=== PATIENT | male | born 1995 | race Caucasian/White ===

== ENCOUNTER 2023-06-07 06:34 | Day surgery (SDC) | payer OTHER, SELFPAY ==
[2023-06-07] VITALS (9 sets, daily range): BP systolic 113–138; BP diastolic 69–79; BMI 32.2
[2023-06-07] MEDS: TYLENOL 1000 MG PO (09:03)
--- NOTE | 2023-06-07 09:12 | W.SUR.PREOP ---
Pre-Operative Surgical Note
-
I have examined this patient prior to the performance of the scheduled procedure.
The patient's condition is unchanged from the time of the current History and
Physical and the patient is able to undergo the scheduled procedure.
--- NOTE | 2023-06-07 11:42 | W.IMMPOSTOP ---
Surgical Immed Post Op Note
-
Primary Surgeon: Anjel Lema MD
Assisting Surgeon: None
Pre-op Diagnosis: Umbilical hernia
Post-op Diagnosis: Same
Procedure Performed: Robotic umbilical hernia repair with mesh (SERG approach)
Anesthesia Type: General
Specimen / Cultures: None
Estimated Blood Loss: 3 cc
Complications: None
Operative Findings: 2 cm umbilical hernia
POST OP PLAN:
Will discharge home
--- NOTE | 2023-06-07 11:44 | OR.RPT ---
Operative Report
Operative Report
Patient Name: Jl Vee
: 1995
Date of Operation: 06/07/2023
Preoperative Diagnosis: Umbilical hernia
Postoperative Diagnosis: Same
Procedure(s):
Robotic umbilical hernia repair with mesh (SERG approach)
Surgeon(s):
Dr. Lema
Assitant(s):
ROYA Celestin
Anesthesia: General
Estimated Blood Loss: 3 cc
Urine Output: None
Drains/Lines/Implants:
11 x 11 cm round Bard soft mesh
Specimens:
None
HPI/Surgical Indications:
This is a 27-year-old male who was seen in my office for a symptomatic umbilical bulge and diagnosed with a reducible umbilical hernia. Risks/Benefits/Alternatives were discussed at length, and the patient agreed to proceed with surgery.
Findings:
2 cm umbilical hernia containing preperitoneal fat
Procedure Description:
The patient was brought to the Operating Room and placed in the supine position with the arms tucked. IV antibiotics were infused and Venodyne stockings placed. Following uneventful induction of general endotracheal anesthesia, an orogastric tube
were placed. The abdomen was prepped and draped in the usual sterile fashion. The abdomen was entered using a Veress technique which required 1 pass, pneumoperitoneum to 15 mmHg was obtained without difficulty. An 8mm trochar was passed through
the abdominal wall roughly 20 cm laterally from the defect in the left upper quadrant, we then confirmed the no inadvertent injury and made while passing the trocar or Veress needle. We then placed two additional 8 mm ports in the left lower
quadrant. Bilateral tap blocks were performed. The robot was docked. We then introduced our prograsper through the inferior/left hand port and a monopolar scissors through the superior port. We then turned our attention to the hernia which had
no intra-abdominal contents. We then began taking a flap down roughly 6 cm away from the defect and roughly 12 cm in length taking care to stay in the pretransversalis plane. The preperitoneal fat was taken down off of the posterior rectus sheath
both superior and inferior to the hernia defect such that we were able to get our 'volcano sign'. We then worked on reducing the defect which contained preperitoneal fat and continued our dissection out laterally for an additional 6 to 7 cm. Once
our flap was created we introduced a ruler and a 0 V-Loc 180. The main hernia defect measured 2 cm. The pocket measured 12 x 12 cm. I had my food and beverage assistant cut a 11 x 11 cm piece of Bard soft mesh with medical nurse, as I closed the umbilical defect.
The mesh was then sutured to the posterior rectus sheath in 4 quadrants with 2-0 vircyls to ensure good apposition. A 2-0 Monocryl was introduced which was used to close our flap. All sutures were removed. The robot was undocked. The ports were
removed under direct visualization and pneumoperitoneum was evacuated. The port sites were closed with 4-0 Monocryl followed by Dermabond. Counts were correct and overall, the patient tolerated the procedure well and was taken to the Recovery Room
postoperatively in stable condition.
I was the attending physician and performed the procedure with assistance from the BAKE ROOM WORKER above. I was present for all portions of the case except for skin closure.
Anjel Lema MD
== END 2023-06-07 13:30 | disposition home or self-care (01) ==
LOC: SDS 06:34
PROVIDERS: ATTENDING PHYSICIAN Surgery
DX: K42.9 Umbilical hernia without obstruction or gangrene (principal)
CPT/HCPCS: 49591; C1781

== ENCOUNTER 2024-12-18 20:06 | Emergency (ER) | payer OTHER, SELFPAY ==
[2024-12-18 20:13] VITALS: BP 149/101
[2024-12-18 20:49] VITALS: BMI 30.8
[2024-12-18 20:53] VITALS: BP 139/81
[2024-12-18] MEDS: GENOPTIC 0.3% EYE DROPS 1 DROP OPHTH (23:49)
--- NOTE | 2024-12-18 23:49 | ED.GENMED ---
History of Present Illness
General
Chief Complaint: Eye Problems
Source: patient and family
Exam Limitations: none
Time Seen by Provider: 12/18/24 22:23
Nursing documentation reviewed up to this point in time: agreed with
History of Present Illness
History of Present Illness:
Note:
CHIEF COMPLAINT(S)
Eye burning sensation upon waking.
HISTORY OF PRESENT ILLNESS
The patient is a 29-year-old male who presented with a burning sensation in both eyes upon waking after going to bed the previous night following work. The patient expressed confusion regarding the onset of symptoms, noting that he had not engaged
in activities typically associated with such symptoms, such as welding or exposure to bright lights. He denied any known exposure to environmental dust or irritants on the day prior to symptom onset. Eye symptoms are persistent and the patient
describes them as stinging. The patient was informed that eye drops, which are expected to sting initially, would be administered to alleviate symptoms.
PLAN
The patient will receive eye drops to manage the burning sensation. The drops will initially cause stinging, which will serve as a reference to assess symptom improvement. The patient will assess the condition before and after the application of the
eye drops to determine their effectiveness.
DIFFERENTIAL DIAGNOSIS
The Differential Diagnosis includes, in no particular order and is not limited to:
1.Corneal Abrasion
2. Dry Eye Syndrome
3. Chemical Conjunctivitis
4. Contact Lens-Associated Eye Irritation
5. Viral Conjunctivitis
6. Bacterial Conjunctivitis
7. Blepharitis
8. Allergic Conjunctivitis
9. Exposure Keratopathy
10. Occupational Exposure to Eye Irritants
Disposition:
SUMMARY OF ENCOUNTER
The patient, a 29-year-old male working in [employer], presented with a burning sensation in both eyes. Upon examination, using fluorescein and tetracaine, minimal bilateral horizontal corneal abrasions were observed. The patient reported relief with the
administration of tetracaine. He is being treated with eye drops (Genoptic [gentamicin ophthalmic]) and received a tetanus shot as his last vaccination was not up to date.
DISPOSITION
The patient will follow up with ophthalmology.
EMERGENCY TREATMENTS ADMINISTERED
Tetracaine was administered for immediate relief of eye discomfort. The patient was also given a tetanus shot.
PLAN
Initiate treatment with Genoptic (gentamicin ophthalmic) eye drops for eye irritation. Follow up with ophthalmology for further evaluation and management of the corneal abrasions.
MEDICATION RECONCILIATION
- Tetracaine administered in the ED for symptomatic relief.
- Genoptic (gentamicin ophthalmic) prescribed for continued use to manage symptoms.
- Tetanus vaccine administered.
MEDICAL DECISION MAKING
- Complexity of Data Reviewed: Differential diagnosis includes exposure keratopathy, corneal abrasion, occupational exposure to eye irritants.
- Data:
- Category 1: Fluorescein dye test was conducted and minimal bilateral horizontal corneal abrasions were independently reviewed.
- Risk: Prescription medication was prescribed (Genoptic [gentamicin ophthalmic]) and tetanus shot was administered. Follow-up with ophthalmology is recommended due to the nature of the corneal abrasions and the occupational risk.
DIAGNOSIS
- Corneal abrasions, bilateral (ICD-10: S05.00XA)
- Tetanus prophylaxis administration due to outdated vaccination status (ICD-10: Z23)
Phy Exam
Physical Exam
Physical Exam:
.
General Physical Exam
General Presentation: well appearing
General age: appears stated age
General Skin: warm and dry
General Habitus: normal
General Mental: alert
Eye Exam
Eye Exam: PERRL and EOMI
Pupil Exam: Bilateral: round and reactive
Cornea Exam: abrasion: Bilateral (Horizontal. No evidence of foreign body)
Type of Exam: simple and fluorescein
Neurological Exam
Neurological Exam: alert and oriented x3
Musculoskeletal Exam
Musculoskeletal Exam: full ROM
Skin Exam
Skin Exam: normal color and warm/dry
Psychiatric Exam
Psychiatric Exam: normal mood/affect
Course
Orders/Labs/Results
Orders:
Orders
12/18/24 22:57
Tetracaine HCl [Tetracaine 0.5% Ophthalmic Solution] 1 drop .ROUTE .STK-MED ONE
12/18/24 23:30
Gentamicin [Genoptic 0.3% Eye Drops] See Dose Instructions OPHTH NOW STA
Tetanus/Diphth/Acelpertussis [Adacel] 0.5 ml IM .ONCE ONE
Vital Signs
Initial and Last Documented VS:
Initial Vital Signs
Temp Pulse Resp BP Pulse Ox
98.5 F 77 18 149/101 98
12/18/24 20:13 12/18/24 20:13 12/18/24 20:13 12/18/24 20:13 12/18/24 20:13
Last Documented Vital Signs
Temp Pulse Resp BP Pulse Ox
98.5 F 67 18 139/81 98
12/18/24 20:13 12/18/24 20:53 12/18/24 20:13 12/18/24 20:53 12/18/24 23:55
*Pulse Oximetry
SaO2: 98
Oxygen Mode of Delivery: Room air
Patient hypoxic: no
*Critical Care Note
Total Time (30-74mins, 75-104mins- exclusive of procedures): Not Applicable
ED Attending Note
-
Portions of this chart may have been created with voice recognition software.� Occasional wrong word or��sound alike� substitutions may have occurred due to the inherent limitations of voice recognition software.
Discharge Plan
Departure
Patient Disposition: Home (Routine Discharge)
Date of Disposition: 12/18/24
Time of Disposition: 23:51
Patient with high blood pressure during this ER visit?: Yes
Discharge Problem:
Bilateral corneal abrasions
Instructions: Corneal Abrasion (DC), How to Use Eye Drops, BLOOD PRESSURE
Prescriptions:
No Action
acetaminophen [acetaminophen] 325 mg tablet
650 mg PO Q6HPRN PRN (Reason: mild pain) Qty: 14 0RF
tramadol 50 mg tablet
25 mg PO Q6HPRN PRN (Reason: severe pain/breakthrough pain) Qty: 12 0RF
ibuprofen 600 mg tablet
600 mg PO Q6H PRN (Reason: pain) Qty: 14 0RF
Referrals:
Dorys Pandey MD [Family Provider, Internal Medicine]
Monique Pablo MD [Active, Ophthalmology] - Call in 1-3 days for appt
Activity Restrictions/Additional Instructions:
You refused a tetanus shot today. Please check with your family doctor regarding your tetanus status.
Please use 1 drop in each eye of the provided eyedrops every 4 hours while awake for 5 days
Thank You for choosing [facility].
It was a pleasure meeting you and taking part in your care. We hope for your continued healing and wellness.
Please read discharge instructions in their entirety. However, they are for general education and may not describe your exact diagnosis at discharge. Information on your ER visit and medical conditions were discussed with you along with appropriate
follow up information...
If indicated, please take your medications as instructed and indicated on discharge paperwork.
Please schedule a follow up appointment as directed. Call to schedule an appointment
Please return to the emergency department with ANY change in, persisting, or worsening of symptoms. If any of your symptoms do not improve, or persist, or become more severe within 6-12 hours, please return to the emergency department for further
care.
Please return to the emergency department if you develop a headache, neck pain/stiffness, fever greater than 100.4F, chest pain, shortness of breath, persistent nausea, vomiting, slurred speech, difficulty walking, numbness/tingling, weakness, signs
of infection or any other symptoms that are worrisome to you.
If you have any questions or concerns please do not hesitate to call the Hospital at or E-mail me directly at [email or web address]
Interventions
Interventions:
*Risk Screen - Suicide Last Done: 12/18/24 20:13
*General Assessment Last Done: 12/18/24 20:13
*Neglect/Abuse Screening Last Done: 12/18/24 20:49
*ED- Fall Risk Assessment Last Done: 12/18/24 20:13
*ED COVID-19 Vaccine History Last Done: 12/18/24 20:13
*Nursing Disposition Last Done: 12/18/24 23:59
Discharge Date and Time
Discharge Date/Time: 12/18/24 23:59
Print Language: PASHTO
== END 2024-12-18 23:59 | disposition home or self-care (01) ==
LOC: EMR 20:06
PROVIDERS: EMERGENCY PHYSICIAN Student in an Organized Health Care Education/Training Program; FAMILY PHYSICIAN Internal Medicine
DX: S05.02XA Injury of conjunctiva and corneal abrasion without foreign body, left eye, initial encounter (principal); S05.01XA Injury of conjunctiva and corneal abrasion without foreign body, right eye, initial encounter; X58.XXXA Exposure to other specified factors, initial encounter
CPT/HCPCS: 99283; 90715